=== PATIENT | male | born 1965 | race Caucasian/White ===

== ENCOUNTER 2019-09-09 10:39 | Emergency (ER) | payer MEDICAID ==
[~2019-09-09] VITALS: Ht 177.8 cm; Wt 104.3 kg
[2019-09-09 10:40] VITALS: BP_SYST 137
--- NOTE | 2019-09-09 10:40 | NUR ---
BROUGHT BACK TO BED #8 AND TRIAGED, REPORT GIVEN TO ALEJO
--- NOTE | 2019-09-09 11:10 | NUR ---
Patient presented to ER with C/O abdominal pain. Patient A&Ox4, skin pink and warm, cap refill <3, pain 5/10, N/V/D. Patient state N/V/D may be do to drinking alcohol consumption. Patient states he is a daily drinker, x1 bottle of wine daily.
--- NOTE | 2019-09-09 11:27 | NUR ---
ER at bedside examining patient.
[2019-09-09] MEDS ORDERED: KETOROLAC TROMETHAMINE 60 MG/2 ML VIAL IM ONE (11:30)
--- NOTE | 2019-09-09 11:50 | NUR ---
Note renetta in EDM - 09/09/19 at 1248 by MARYELLENEDTTiarra Patient presented to ER with C/O abdominal pain. Patient A&Ox4, skin pink and warm, cap refill <3, pain 5/10, N/V/D. Patient state N/V/D may be do to drinking alcohol consumption. Patient states he is a daily drinker, x1 bottle of wine daily.
[2019-09-09 11:53] LABS: BASOPHILS % (AUTO) 0.5 % (0.0-2.0); EOSINOPHILS # (AUTO) 0.1 K/uL (0.0-0.4); EOSINOPHILS % (AUTO) 0.9 % (0.0-4.0); HEMATOCRIT 35.4 % (36-54); HEMOGLOBIN 11.9 g/dL (14.0-18.0); LYMPHOCYTES # (AUTO) 2.1 K/uL (1.0-5.5); LYMPHOCYTES % (AUTO) 27.5 % (20.5-51.5); MEAN CORPUSCULAR HEMOGLOBIN 37 pg (27-31); MEAN CORPUSCULAR HGB CONC 34 % (32-36); MEAN CORPUSCULAR VOLUME 108 fL (79.0-98.0); MONOCYTES # (AUTO) 0.9 K/uL (0.0-1.0); MONOCYTES % (AUTO) 11.8 % (1.7-9.3); NEUTROPHILS # (AUTO) 4.5 K/uL (1.8-7.7); NEUTROPHILS % (AUTO) 59.3 % (40.0-70.0); PLATELET COUNT (AUTO) 115 K/uL (130-430); RED BLOOD CELL COUNT(AUTO) 3.27 MIL/uL (4.2-6.2); RED CELL DISTRIBUTION WIDTH 15.4 % (9.0-15.0); WHITE BLOOD COUNT (AUTO) 7.7 K/uL (4.8-10.8)
--- NOTE | 2019-09-09 11:53 | NUR ---
Patient in CT with radiology staff.
[2019-09-09 12:06] LABS: CALCIUM 10.5 mg/dL (8.4-11.0); CREATININE 0.89 mg/dL (0.55-1.30); POTASSIUM 4.3 mmol/L (3.5-5.1)
[2019-09-09 12:11] LABS: ALBUMIN 3.7 g/dL (3.4-4.8); TOTAL BILIRUBIN 1.6 mg/dL (0.0-1.0)
--- NOTE | 2019-09-09 12:11 | NUR ---
Administered Toradol 60mg IM to the left ventrogluteal as ordered by Dr. Dudley. Patient tolerated the medication well.
--- NOTE | 2019-09-09 13:00 | NUR ---
DR DELGADO SPEAKING WITH PT AND PTS BROTHER IN ROOM RE: TEST RESULTS
[2019-09-09 13:14] VITALS: BP_SYST 137
--- NOTE | 2019-09-09 13:18 | NUR ---
Patient given written and verbal discharge instructions and verbalizes understanding. ER MD discussed with patient the results and treatment provided. Patient in stable condition. ID arm band removed. Rx of Flagyl, Ativan, Bactrim given. Patient educated on pain management and to follow up with PMD. Pain Scale 0/10. Opportunity for questions provided and answered. Medication side effect fact sheet provided.
== END 2019-09-09 13:18 | disposition home or self-care (01) ==
LOC: SED 10:39
DX: K52.9 Noninfective gastroenteritis and colitis, unspecified (principal)
CPT/HCPCS: 36415; 74176; 80053; 83690; 85025; 96372; 99284; J1885